=== PATIENT | male | born 1970 | race Hispanic/Latino ===

== ENCOUNTER 2025-06-04 14:37 | Emergency (ER) | payer OTHER ==
[2025-06-04] MEDS ORDERED: ONDANSETRON 4 MG/2 ML VIAL ONE (15:18)
[2025-06-04 15:19] LABS: Absolute Lymphocytes (CBC) 2.3 K/uL (0.7-4.9); Hematocrit 47.4 % (39.6-49.0); Hemoglobin 16.3 g/dL (13.6-17.9); MCH 30.8 pg (27.0-35.0); MCHC 34.5 g/dL (32.0-36.0); MCV 89.1 fL (80-100); MPV 9.5 fL (7.6-11.3); Nucleated RBC Absolute Count 0.0 (0-0); Nucleated Red Blood Cells % 0.1 % (0-0); RBC Red Blood Cell Count 5.31 M/uL (4.33-5.43); White Blood Count 8.00 thou/uL (4.3-10.9)
[2025-06-04] MEDS ORDERED: NA CHLORIDE 0.9% 1,000 ML ONE (15:19)
[2025-06-04] MEDS ORDERED: MORPHINE 4 MG/ML SYR ONE (15:19)
[2025-06-04 16:27] LABS: ALT/SGPT 46.0 U/L (16-61); AST/SGOT 20.0 U/L (15-37); Albumin 3.9 g/dL (3.4-5.0); Albumin/Globulin Ratio 1.1 (1.1-1.8); Alkaline Phosphatase 77.0 U/L (45-117); Anion Gap 6.9 mEq/L (5.0-15.0); BUN Blood Urea Nitrogen 20.0 mg/dL (7-18); Globulin 3.7 g/dL (2.3-3.5); Glucose Level 105.0 mg/dL (74-106); Lipase 48.0 U/L (13-75); Potassium 3.9 mEq/L (3.5-5.1)
[2025-06-04] MEDS ORDERED: FAMOTIDINE 20 MG/2 ML VIAL IV ONE (16:50)
[2025-06-04] MEDS ORDERED: FENTANYL CITR 100 MCG/2 ML ONE (16:50)
--- NOTE | 2025-06-04 18:00 | RAD REPORT ---
EXAMINATION: CT Abdomen Pelvis W/Wo Contrast CLINICAL INDICATION: Male, 54 years old. [facility] MAIN flank pain;Abd pain Bed Name: 20 TECHNIQUE: CT abdomen and pelvis was performed, before and after the administration of IV contrast, a s per department protocol. Axial, sagittal and coronal reconstructions were obtained. One or more of the following dose reduction techniques were used: Automated exposure control, adjustment of the m A and/or kV according to patient size, and/or iterative reconstruction. Unless otherwise specified, incidental findings do not require dedicated imaging follow-up. COMPARISON: No prior exam. FINDINGS: LOWER CHEST: The visualized lung bases are clear. LIVER: Normal in size and contour. No focal lesion. BILIARY SYSTEM: No suspicious abnormalities. PANCREAS: No mass, ductal dilation, or rodrigo-pancreatic fluid. SPLEEN: Normal size. No focal lesion. ADRENALS: Normal; no mass. KIDNEYS AND URETERS: Normal size and contour. No hydronephrosis or hydroureter. No enhancing mass or filling defect within the renal pelvises. No suspicious filling defects within the ureters. URINARY BLADDER: Mildly decompressed limiting evaluation. No suspicious mass or stone. GASTROINTESTINAL TRACT: No evidence of bowel obstruction, free air, significant free fluid or abscess . Few scattered colonic diverticula. APPENDIX: No inflammatory changes in region of appendix. LYMPH NODES: No lymphadenopathy. REPRODUCTIVE ORGANS: No pathologic process. MUSCULOSKELETAL: No acute or suspicious osseous abnormality apart from mild inferior endplate martinez luz deformity at T12, without prevertebral acute soft tissue abnormalities. ADDITIONAL FINDINGS: Small inguinal hernia containing fat. IMPRESSION: No acute or significant abnormalities seen in the abdomen or pelvis. Mild inferior endplate compressi on deformity at T12, favored to be chronic.
[2025-06-04 18:58] LABS: Urine Microscopic Reflex YN NO UMIC
[2025-06-04] MEDS ORDERED: METOCLOPRAMIDE 10 MG/2mL INJ ONE (19:15)
[2025-06-04] MEDS ORDERED: DIPHENHYDRAMINE 50 MG/ML VIAL ONE (19:16)
[2025-06-04] MEDS ORDERED: KETOROLAC 30 MG/ML INJ ONE (19:16)
[2025-06-04] MEDS ORDERED: MAGNES/ALUMIN/SIMET 30ML UCUP ONE (19:16)
[2025-06-04] MEDS ORDERED: LIDOCAINE VISCOUS 2% 10ML ORAL SOLN ONE (19:16)
--- NOTE | 2025-06-04 19:18 | ER ---
Nurse's Notes [facility] Name: Anup Pedroza Age: 54 yrs Sex: Male : 1970 Arrival Date: 06/04/2025 Time: 14:37 Bed 20 Private MD: Diagnosis: Abdominal pain, unspecified;Nausea with vomiting, unspecified Presentation: 06/04 15:15 Chief complaint: Patient states: "I was eating lunch around noon and by one I was zm nauseous". Coronavirus screen: Vaccine status: Patient reports receiving the 2nd dose of the covid vaccine. Ebola Screen: Patient denies travel to an Ebola-affected area in the 21 days before illness onset. No symptoms or risks identified at this time. Initial Sepsis Screen: Does the patient meet any 2 criteria? No. Patient's initial sepsis screen is negative. Does the patient have a suspected source of infection? No. Patient's initial sepsis screen is negative. Risk Assessment: Do you want to hurt yourself or someone else? Patient reports no desire to harm self or others. 15:15 Method Of Arrival: Ambulatory 15:15 Acuity: TANGELA 3 15:15 Onset of symptoms was June 04, 2025 at 01:00. Triage Assessment: 15:15 General: Appears distressed, uncomfortable, Behavior is cooperative. Pain: Complains of zm pain in abdomen Pain currently is 10 out of 10 on a pain scale. Pain began 3 hours ago. 15:15 Neuro: Level of Consciousness is awake, alert, obeys commands, Oriented to person, zm place, time, situation. Cardiovascular: Capillary refill < 3 seconds in bilateral fingers Patient's skin is warm and dry. Respiratory: Airway is patent Respiratory effort is even, unlabored, Respiratory pattern is regular, symmetrical, Breath sounds are clear bilaterally. GI: Abdomen is round distended, Bowel sounds present X 4 quads. hyperactive in right upper quadrant, left upper quadrant, right lower quadrant and left lower quadrant Abd is soft X 4 quads Abdomen is tender to palpation in left upper quadrant and left lower quadrant Reports nausea, vomiting. Historical: - Allergies: 15:33 No Known Allergies; zm - Home Meds: 15:33 None [Active]; zm - PMHx: 15:33 None; zm - PSHx: 15:33 None; zm - Immunization history:: Adult Immunizations unknown. - Infectious Disease History:: Denies. - Social history:: Smoking status: Patient denies any tobacco usage or history of. Patient/guardian denies using alcohol. Screenin:37 [facility] ED Fall Risk Assessment (Adult) History of falling in the last 3 months, zm including since admission No falls in past 3 months (0 pts) Confusion or Disorientation No (0 pts) Intoxicated or Sedated No (0 pts) Impaired Gait No (0 pts) Mobility Assist Device Used No (0 pt) Altered Elimination No (0 pt) Score/Fall Risk Level 0 - 2 = Low Risk Oriented to surroundings, Maintained a safe environment, Educated pt \\T\\ family on fall prevention, incl call for assistance when getting out of bed, Assessed \\T\\ reinforced patient's understanding of fall precautions, Hourly rounding (assess needs \\T\\ fall precautionary measures) done, Used ambulatory aids as needed (educated on \\T\\ assisted with), Used gait belt as appropriate. Abuse screen: Denies threats or abuse. Denies injuries from another. Nutritional screening: No deficits noted. Tuberculosis screening: No symptoms or risk factors identified. Assessment: 15:37 Reassessment: see triage assessment. zm 16:30 Reassessment: Patient and/or family updated on plan of care and expected duration. Pain zm level reassessed. Patient is alert, oriented x 3, equal unlabored respirations, skin warm/dry/pink. Patient states symptoms have not improved. 16:30 Pain: Pain currently is 9 out of 10 on a pain scale. zm 17:30 Reassessment: Patient appears in no apparent distress at this time. Patient and/or zm family updated on plan of care and expected duration. Pain level reassessed. Patient is alert, oriented x 3, equal unlabored respirations, skin warm/dry/pink. Patient states feeling better. Patient states symptoms have improved. 18:37 Reassessment: Patient appears in no apparent distress at this time. No changes from zm previously documented assessment. Patient and/or family updated on plan of care and expected duration. Pain level reassessed. Patient is alert, oriented x 3, equal unlabored respirations, skin warm/dry/pink. 19:26 General: Appears in no apparent distress. comfortable, Behavior is calm, cooperative, ss12 quiet. Pain: Complains of pain in abdomen Pain currently is 6 out of 10 on a pain scale. Quality of pain is described as aching, pressure. Neuro: No deficits noted. Level of Consciousness is awake, alert, obeys commands, Oriented to person, place, time, situation. Cardiovascular: No deficits noted. Patient's skin is warm and dry. Respiratory: No deficits noted. Airway is patent via oral airway Respiratory effort is even, unlabored, Respiratory pattern is regular, symmetrical. GI: No deficits noted. No signs and/or symptoms were reported involving the gastrointestinal system. Abdomen is flat, non-distended. GI: Abdomen is flat, non-distended. : No deficits noted. No signs and/or symptoms were reported regarding the genitourinary system. Urine is clear. EENT: No deficits noted. No signs and/or symptoms were reported regarding the EENT system. Derm: No deficits noted. No signs and/or symptoms reported regarding the dermatologic system. Musculoskeletal: No deficits noted. No signs and/or symptoms reported regarding the musculoskeletal system. Vital Signs: 15:15 BP 151 / 104; Pulse 58; Resp 20; Temp 98.7; Pulse Ox 100% on R/A; Pain 10/10; zm 17:17 BP 160 / 82; Pulse 56; Resp 19; Temp 98.7; Pulse Ox 100% on R/A; Pain 9/10; zm 18:00 BP 140 / 75; Pulse 58; Resp 16; Temp 98.3; Pulse Ox 97% on R/A; zm 19:00 BP 163 / 88; Pulse 72; Resp 16; Temp 98.8; Pulse Ox 96% on R/A; ss12 19:30 BP 152 / 89; Pulse 67; Resp 16; Pulse Ox 96% on R/A; ss12 15:15 Pain Scale: Adult zm 17:17 Pain Scale: Adult zm Una Coma Score: 17:17 Eye Response: spontaneous(4). Motor Response: obeys commands(6). Verbal Response: zm oriented(5). Total: 15. 18:00 Eye Response: spontaneous(4). Motor Response: obeys commands(6). Verbal Response: zm oriented(5). Total: 15. 19:30 Eye Response: spontaneous(4). Motor Response: obeys commands(6). Verbal Response: ss12 oriented(5). Total: 15. ED Course: 14:40 Patient arrived in ED. mr 14:44 [facility] cp 14:45 Alonzo Arambula MD is Attending Physician. cp 15:10 Charla Grimaldo, RN is Primary Nurse. zm 15:20 CBC with Diff Sent. zm 15:20 CMP Sent. zm 15:20 Lipase Sent. zm 15:33 Triage completed. zm 15:37 Arm band placed on right wrist. zm 15:37 Patient has correct armband on for positive identification. Bed in low position. Call zm light in reach. Side rails up X 1. Adult w/ patient. Provided Education on: call light use. Client placed on continuous cardiac and pulse oximetry monitoring. NIBP monitoring applied. Door closed. Noise minimized. Lights dimmed. Warm blanket given. Verbal reassurance given. 16:45 CT Abd/Pelvis- W/WO Contrast In Process Unspecified. EDMS 18:17 UA Rfx Dewey Cult if indicated Sent. zm 18:36 Diet: Patient given water. Tolerated well. zm 19:29 No provider procedures requiring assistance completed. IV discontinued, intact, ss12 bleeding controlled, No redness/swelling at site. Pressure dressing applied. Administered Medications: 15:28 Drug: morphine IVP or IV 4 mg IVP once over 4 mins Route: IVP; Infused Over: 4 mins; zm Site: left antecubital; 18:22 Follow up: Response: No adverse reaction zm 15:28 Drug: Ondansetron IVP 4 mg IVP once; over 2 minutes Route: IVP; Site: left antecubital; zm 18:22 Follow up: Response: No adverse reaction 15:28 Drug: NS 0.9% IV 1000 ml IV at 1000 ml once; to be given as a bolus over 60 minutes Route: IV; Rate: 1000 ml; Site: left antecubital; 19:00 Follow up: Response: No adverse reaction; IV Status: Completed infusion; IV Intake: ss12 100ml 16:59 Drug: Famotidine IVP 20 mg IVP once; dilute with 10 mL 0.9% NaCl; give over 2 minutes zm Route: IVP; Site: left antecubital; 18:22 Follow up: Response: No adverse reaction zm 16:59 Drug: fentaNYL (PF) IVP 50 mcg IVP once Route: IVP; Site: left antecubital; zm 17:30 Follow up: Response: No adverse reaction; Pain is decreased zm 18:05 Not Given (Physician Discretion): ativan1 mg IVP once cp 19:10 Drug: Ketorolac IVP 30 mg IVP once Route: IVP; Site: left antecubital; ss12 19:31 Follow up: Response: No adverse reaction ss12 19:10 Drug: GI Cocktail without - (Maalox PO 30 ml, Lidocaine Mucous Membrane 2 % 15 ss12 ml) PO once Route: PO; 19:31 Follow up: Response: No adverse reaction ss12 19:10 Drug: metoCLOPramide IVP 10 mg IVP once; over 1 to 2 minutes Route: IVP; Site: left ss12 antecubital; 19:31 Follow up: Response: No adverse reaction ss12 19:10 Drug: diphenhydrAMINE IVP 25 mg IVP once Route: IVP; Site: left antecubital; ss12 19:31 Follow up: Response: No adverse reaction ss12 Medication: 15:37 VIS not applicable for this client. zm Intake: 19:00 IV: 100ml; Total: 100ml. ss12 Outcome: 19:18 Discharge ordered by MD. cp 19:29 Discharged to home ambulatory, ss12 19:29 Condition: stable 19:29 Discharge instructions given to patient, family, Instructed on discharge instructions, follow up and referral plans. Demonstrated understanding of instructions, follow-up care, medications, Prescriptions given X 2, 19:46 Patient left the ED. ss12 Signatures: Dispatcher [employer] ED[facility] Antonina Coates, Rao Yeh mr Alonzo Feliciano, NIMCO PACharla Corea cp, Shirlene Whitlock RN, RN RN 12
--- NOTE | 2025-06-04 19:18 | EDPHYS ---
Physician Documentation [facility] Name: Anup Pedroza Age: 54 yrs Sex: Male : 1970 Arrival Date: 06/04/2025 Time: 14:37 Bed 20 Private MD: ED Physician Alonzo Arambula HPI: 06/04 15:03 This 54 yrs old Male presents to ER via Unassigned with complaints of cp Abdominal Pain. 15:03 The patient presents with abdominal pain in the lower abdomen. The symptoms radiate to lower back. Associated signs and symptoms: Pertinent positives: nausea. The symptoms are described as constant. 15:03 Severity of pain: in the emergency department the pain is unchanged despite home cp interventions. Historical: - Allergies: 15:33 No Known Allergies; zm - Home Meds: 15:33 None [Active]; zm - PMHx: 15:33 None; zm - PSHx: 15:33 None; zm - Immunization history:: Adult Immunizations unknown. - Infectious Disease History:: Denies. - Social history:: Smoking status: Patient denies any tobacco usage or history of. Patient/guardian denies using alcohol. ROS: 15:05 Constitutional: Negative for body aches, chills, fever, cp 15:05 Abdomen/GI: Positive for abdominal pain, nausea, 15:05 Eyes: Negative for injury, pain, redness, and discharge, cp 15:05 ENT: Negative for drainage from ear(s), ear pain, sore throat, difficulty swallowing, difficulty handling secretions, 15:05 Cardiovascular: Negative for chest pain, edema, palpitations, 15:05 Respiratory: Negative for cough, shortness of breath, wheezing, 15:05 Back: Negative for pain at rest, pain with movement, 15:05 Neuro: Negative for altered mental status, dizziness, headache, numbness, weakness, 15:05 All other systems are negative, Exam: 15:20 Constitutional: The patient appears in no acute distress, alert, awake, cp non-diaphoretic, well developed, well nourished, 15:20 Head/Face: Normocephalic, atraumatic. cp 15:20 Eyes: Periorbital structures: appear normal, Conjunctiva: normal, no exudate, no injection, Sclera: no appreciated abnormality, Lids and lashes: appear normal, bilaterally, 15:20 ENT: External ear(s): are unremarkable, Nose: is normal, Mouth: Lips: moist, Oral mucosa: moist, Posterior pharynx: Airway: no evidence of obstruction, patent, 15:20 Chest/axilla: Inspection: normal, Palpation: is normal, no crepitus, no tenderness, 15:20 Cardiovascular: Rate: bradycardic, Rhythm: regular, 15:20 Respiratory: the patient does not display signs of respiratory distress, Respirations: normal, no use of accessory muscles, no retractions, labored breathing, is not present, Breath sounds: are clear throughout, no decreased breath sounds, no stridor, no wheezing, 15:20 Abdomen/GI: Inspection: abdomen appears normal, Bowel sounds: active, all quadrants, Palpation: soft, in all quadrants, moderate abdominal tenderness, in all quadrants, 15:20 Back: CVA tenderness, is absent, 15:20 Neuro: Orientation: to person, place \T\ time. Mentation: is normal, Vital Signs: 15:15 BP 151 / 104; Pulse 58; Resp 20; Temp 98.7; Pulse Ox 100% on R/A; Pain 10/10; zm 17:17 BP 160 / 82; Pulse 56; Resp 19; Temp 98.7; Pulse Ox 100% on R/A; Pain 9/10; zm 18:00 BP 140 / 75; Pulse 58; Resp 16; Temp 98.3; Pulse Ox 97% on R/A; zm 19:00 BP 163 / 88; Pulse 72; Resp 16; Temp 98.8; Pulse Ox 96% on R/A; ss12 19:30 BP 152 / 89; Pulse 67; Resp 16; Pulse Ox 96% on R/A; ss12 15:15 Pain Scale: Adult zm 17:17 Pain Scale: Adult zm Una Coma Score: 17:17 Eye Response: spontaneous(4). Motor Response: obeys commands(6). Verbal Response: zm oriented(5). Total: 15. 18:00 Eye Response: spontaneous(4). Motor Response: obeys commands(6). Verbal Response: zm oriented(5). Total: 15. 19:30 Eye Response: spontaneous(4). Motor Response: obeys commands(6). Verbal Response: ss12 oriented(5). Total: 15. MDM: 14:58 Medical Screening Exam initiated hunter 19:18 Data reviewed: vital signs, nurses notes, lab test result(s), radiologic studies, CT cp scan, and as a result, I will discharge patient. 19:18 Differential diagnosis: cholecystitis, Cholelithiasis, diverticulitis, gastritis, cp non-specific abd pain, pancreatitis, Peptic Ulcer Disease, Perf. Duodenal Ulcer, Perf. Gastric Ulcer. I considered the following discharge prescriptions or medication management in the emergency department Medications were administered in the Emergency Department. See MAR. Counseling: I had a detailed discussion with the patient and/or guardian regarding the historical points, exam findings, and any diagnostic results supporting the discharge/admit diagnosis, lab results, radiology results, to return to the emergency department if symptoms worsen or persist or if there are any questions or concerns that arise at home. Special discussion: Based on the patient's Hx, exam, and Dx evaluation, there is no indication for emergent surgery or inpatient Tx. It is understood by the patient/guardian that if the Sx's persist or worsen they need to return immediately for re-evaluation. 06/04 15:10 Order name: CBC with Diff; Complete Time: 16:49 zm 06/04 15:10 Order name: CMP; Complete Time: 16:49 zm 06/04 18:03 Interpretation: Normal except: CL 110; BUN 20; GLOB 3.7. cp 06/04 15:10 Order name: Lipase; Complete Time: 16:49 zm 06/04 18:04 Order name: UA Rfx Dewey Cult if indicated; Complete Time: 19:02 cp 06/04 19:02 Interpretation: Normal except: UPH 8.0. cp 06/04 15:18 Order name: CT Abd/Pelvis- W/WO Contrast; Complete Time: 18:02 cp 06/04 18:03 Interpretation: Reviewed. cp 06/04 15:10 Order name: IV Saline Lock; Complete Time: 15:20 zm 06/04 15:10 Order name: Labs collected and sent; Complete Time: 15:20 zm 06/04 15:28 Order name: Misc. Order: recollect light green; Complete Time: 15:57 sp 06/04 18:04 Order name: PO challenge; Complete Time: 18:17 cp Administered Medications: 15:28 Drug: morphine IVP or IV 4 mg IVP once over 4 mins Route: IVP; Infused Over: 4 mins; zm Site: left antecubital; 18:22 Follow up: Response: No adverse reaction zm 15:28 Drug: Ondansetron IVP 4 mg IVP once; over 2 minutes Route: IVP; Site: left antecubital; zm 18:22 Follow up: Response: No adverse reaction zm 15:28 Drug: NS 0.9% IV 1000 ml IV at 1000 ml once; to be given as a bolus over 60 minutes zm Route: IV; Rate: 1000 ml; Site: left antecubital; 19:00 Follow up: Response: No adverse reaction; IV Status: Completed infusion; IV Intake: ss12 100ml 16:59 Drug: Famotidine IVP 20 mg IVP once; dilute with 10 mL 0.9% NaCl; give over 2 minutes zm Route: IVP; Site: left antecubital; 18:22 Follow up: Response: No adverse reaction zm 16:59 Drug: fentaNYL (PF) IVP 50 mcg IVP once Route: IVP; Site: left antecubital; zm 17:30 Follow up: Response: No adverse reaction; Pain is decreased zm 18:05 Not Given (Physician Discretion): ativan1 mg IVP once cp 19:10 Drug: Ketorolac IVP 30 mg IVP once Route: IVP; Site: left antecubital; ss12 19:31 Follow up: Response: No adverse reaction ss12 19:10 Drug: GI Cocktail without - (Maalox PO 30 ml, Lidocaine Mucous Membrane 2 % 15 ss12 ml) PO once Route: PO; 19:31 Follow up: Response: No adverse reaction ss12 19:10 Drug: metoCLOPramide IVP 10 mg IVP once; over 1 to 2 minutes Route: IVP; Site: left ss12 antecubital; 19:31 Follow up: Response: No adverse reaction ss12 19:10 Drug: diphenhydrAMINE IVP 25 mg IVP once Route: IVP; Site: left antecubital; ss12 19:31 Follow up: Response: No adverse reaction ss12 Disposition: 06/05 08:31 Co-signature as Attending Physician, Alonzo rAambula MD I agree with the assessment and hunter plan of care. Disposition Summary: 06/04/25 19:18 Discharge Ordered Notes: Location: Home cp Problem: new cp Symptoms: have improved cp Condition: Stable cp Diagnosis - Abdominal pain, unspecified cp - Nausea with vomiting, unspecified cp Followup: cp - With: Private Physician - When: 2 - 3 days - Reason: Worsening of condition Discharge Instructions: - Discharge Summary Sheet cp - Abdominal Pain, Adult cp - Nausea and Vomiting, Adult cp Forms: - Medication Reconciliation Form cp - Antibiotic Education cp - Prescription Opioid Use cp - Patient Portal Instructions cp - Leadership Thank You Letter cp Prescriptions: - dicyclomine 20 mg Oral tablet - take 1 tablet ORAL route 4 times per day; 30 tablet; Refills: 0, Product cp Selection Permitted - ondansetron 8 mg Oral Tablet,disintegrating - take 1 tablet ORAL route every 12 hours; 20 tablet; Refills: 0, Product cp Selection Permitted Signatures: Dispatcher [employer] Alonzo Leal MD MD cha Pinkerton, Shawna sp Page, Corey, PARobertoC PACharla Corea cp, RN ALEXI zm Shirlene Garber RN RN ss12 Corrections: (The following items were deleted from the chart) 17:28 06/04 16:10 Constitutional: The patient appears in no acute distress, alert, awake, cp non-diaphoretic, well developed, well nourished, cp
[2025-06-05 01:13] VITALS: TEMP 98.8; O2SAT 96
[2025-06-05 01:15] VITALS: BP 152/89
== END 2025-06-04 19:46 | disposition home or self-care (01) ==
LOC: ER 14:37
DX: R10.30 Lower abdominal pain, unspecified (principal); R11.2 Nausea with vomiting, unspecified
CPT/HCPCS: 96361; 85025; 36415; 81003; 83690; 80053; 74178; 96375; 96374; 99284; Q9967; J1885; J2765; J1200; J3010; J2405; J7030